=== PATIENT | female | born 1990 | race African-American/Black ===

== ENCOUNTER 2016-08-16 03:29 | Emergency (ER) | payer BC ==
[~2016-08-16] VITALS: Ht 175.3 cm; Wt 113.0 kg
[2016-08-16 03:30] VITALS: BP 150/91; PULSE 78; RESP 16; TEMP 98.2; O2SAT 97
--- NOTE | 2016-08-16 04:07 | PD ---
HPI Chief Complaint: ENT Complaint Time Seen by Provider: 04:00 Travel History International Travel<30 days: No Contact w/Intl Traveler<30days: No Traveled to known affect area: No History of Present Illness HPI 25-year-old female presents for evaluation of sore throat. Symptoms started 2 days ago. It hurts to swallow. Associated with congestion, bilateral ear pressure, cough. She tried using DayQuil but symptoms persisted which prompted evaluation. No fevers or chills, no rash, no recent travel, no recent swimming. No sick contacts. No other complaints at this time. PFSH Past Medical History Medical History: Denies Significant Hx Diminished Hearing: No Tetanus Vaccination: < 5 Years Influenza Vaccination: No ?: Not LMP: 07/14/16 Past Surgical History Surgical History: No Previous Surgery Social History Alcohol Use: Yes (SOCIALLY) Tobacco Use: Yes (1 BLK/MILD CIGAR) Substance Use: No Allergies-Medications (Allergen,Severity, Reaction): Coded Allergies: No Known Allergies (Unverified , 08/16/16) Reported Meds & Prescriptions Reported Meds & Active Scripts Active Tessalon Perles (Benzonatate) 100 Mg Cap 200 Mg PO TID PRN Review of Systems Except as stated in HPI: all other systems reviewed are Neg Physical Exam Narrative GENERAL: Well-developed well-nourished female in no acute distress SKIN: Warm and dry. HEAD: Atraumatic. Normocephalic. EYES: Pupils equal and round. No scleral icterus. No injection or drainage. ENT: No nasal bleeding or discharge. Mucous membranes pink and moist. Tympanic membranes bilaterally without erythema or perforation. Minimal oropharyngeal erythema without exudate. Uvula midline with no mass effect. No stridor or drooling. NECK: Trachea midline. No JVD. No lymphadenopathy. CARDIOVASCULAR: Regular rate and rhythm. No murmur appreciated. RESPIRATORY: No accessory muscle use. Clear to auscultation. Breath sounds equal bilaterally. Data Data Last Documented VS Vital Signs Date Time Temp Pulse Resp B/P Pulse Ox O2 Delivery O2 Flow Rate FiO2 08/16/16 03:55 16 08/16/16 03:30 98.2 78 150/91 97 Room Air Orders Group A Rapid Strep Screen (08/16/16 04:05) Ibuprofen (Motrin) (08/16/16 04:15) Strep Culture (Group A) (08/16/16 04:00) MDM Medical Decision Making Medical Screen Exam Complete: Yes Emergency Medical Condition: Yes Medical Record Reviewed: Yes Differential Diagnosis Pharyngitis, tonsillitis, peritonsillar abscess, infectious mononucleosis, herpangina, epiglottitis Narrative Course 25-year-old female with sore throat, congestion, ear pressure and cough for 2 days. Physical examination is reassuring. Likely the patient is suffering from a viral upper respiratory infection. Rapid strep screen was performed and is negative. The patient is stable for discharge with a cough medication. Diagnosis Primary Impression: Upper respiratory infection Qualified Code: J06.9 - Upper respiratory tract infection, unspecified type Departure Forms: Tests/Procedures, Work Release Enter return to work date: Aug 17, 2016 Additional Instructions: Medication as needed. Take [id number] Tylenol or Motrin for discomfort. Follow-up with primary care physician as needed. Med/Other Pt SpecificInfo: Prescription(s) given Scripts Benzonatate (Tessalon Perles)100 Mg [id number] Mg PO TID PRN (COUGH) #30 CAP Ref 0 Prov:Karthikeyan Villegas MD 08/16/16 Disposition: 01 DISCHARGE HOME Condition: Stable Berhane Pretty Aug 16, 2016 04:06
[2016-08-16] MEDS ORDERED: IBUPROFEN 800 MG TAB PO ONE (04:15)
[2016-08-16] MEDS ORDERED: BENZ100 PO (04:54)
== END 2016-08-16 04:59 | disposition home or self-care (01) ==
LOC: NEPB 03:29
DX: J06.9 Acute upper respiratory infection, unspecified (principal)
CPT/HCPCS: 87081; 87880; 99283

== ENCOUNTER 2016-08-20 14:50 | Emergency (ER) | payer BC ==
[~2016-08-20] VITALS: Ht 175.3 cm; Wt 97.5 kg
[~2016-08-20 14:50] MED LIST: BENZ100 PO
[2016-08-20 14:51] VITALS: BP 165/84; PULSE 94; RESP 15; TEMP 98.2; O2SAT 95
--- NOTE | 2016-08-20 15:35 | PD ---
HPI Chief Complaint: Cold / Flu Symptoms Time Seen by Provider: 15:33 Travel History International Travel<30 days: No Contact w/Intl Traveler<30days: No Traveled to known affect area: No History of Present Illness HPI Patient is a 25-year-old female who presents to our for evaluation of cough, chest congestion, fevers, nasal congestion, sore throat patient was seen and evaluated emergency department for days ago and told she had a viral illness. She states since that time her symptoms have begun to worsen, she is currently approximately 6 days into this illness with no improvement in her symptoms. She denies any abdominal pain, nausea, vomiting, diarrhea. She reports a productive cough with yellow sputum. She states she woke up this morning and her eyes were swollen. She denies a significant past medical history. [facility] Past Medical History Medical History: Denies Significant Hx Diminished Hearing: No ?: Not LMP: 07/2016 Social History Alcohol Use: Yes (SOCIALLY) Tobacco Use: Yes (1 BLK/MILD CIGAR) Substance Use: No Allergies-Medications (Allergen,Severity, Reaction): Coded Allergies: No Known Allergies (Unverified , 08/20/16) Reported Meds & Prescriptions Reported Meds & Active Scripts Active Tessalon Perles (Benzonatate) 100 Mg Cap 200 Mg PO TID PRN Review of Systems Except as stated in HPI: all other systems reviewed are Neg General / Constitutional: Positive: Fever, Chills Eyes: Positive: Other HENT: Positive: Sore Throat, Rhinitis, Congestion, No: Headaches Cardiovascular: No: Chest Pain or Discomfort Respiratory: Positive: Cough, Pleuritic Pain, No: Shortness of Breath, Wheezing Gastrointestinal: No: Nausea, Vomiting, Diarrhea, Abdominal Pain Musculoskeletal: Positive: Myalgias Neurologic: Positive: Weakness, No: Dizziness, Syncope, Focal Abnormalities Physical Exam Narrative GENERAL: Developed, well-nourished, alert female. Resting comfortably in no acute distress. Appears acutely ill. SKIN: Warm and dry. HEAD: Atraumatic. Normocephalic. EYES: Pupils equal and round. No scleral icterus. No injection or drainage. Bilateral upper eyelids are edematous, without erythema. ENT: No nasal bleeding or discharge. Mucous membranes pink and moist. NECK: Trachea midline. No JVD. CARDIOVASCULAR: Regular rate and rhythm. No murmur appreciated. RESPIRATORY: No accessory muscle use. Clear to auscultation. Breath sounds diminished bilaterally in bases. GASTROINTESTINAL: Abdomen soft, non-tender, nondistended. Hepatic and splenic margins not palpable. MUSCULOSKELETAL: No obvious deformities. No clubbing. No cyanosis. No edema. NEUROLOGICAL: Awake and alert. No obvious cranial nerve deficits. Motor grossly within normal limits. Normal speech. PSYCHIATRIC: Appropriate mood and affect; insight and judgment normal. Data Data Last Documented VS Vital Signs Date Time Temp Pulse Resp B/P Pulse Ox O2 Delivery O2 Flow Rate FiO2 08/20/16 17:04 18 08/20/16 17:03 99.1 76 162/87 100 Room Air Orders Complete Blood Count With Diff (08/20/16 15:30) Basic Metabolic Panel (Bmp) (08/20/16 15:30) Influenzae A/B Antigen (08/20/16 15:30) Chest, Pa & Lat (08/20/16 15:30) Labs Laboratory Tests Test 08/20/16 15:55 White Blood Count 13.0 TH/MM3 Red Blood Count 4.35 MIL/MM3 Hemoglobin 9.7 GM/DL Hematocrit 30.4 % Mean Corpuscular Volume 69.9 FL Mean Corpuscular Hemoglobin 22.4 PG Mean Corpuscular Hemoglobin 32.0 % Concent Red Cell Distribution Width 18.3 % Platelet Count 321 TH/MM3 Mean Platelet Volume 8.8 FL Neutrophils (%) (Auto) 66.2 % Lymphocytes (%) (Auto) 22.2 % Monocytes (%) (Auto) 8.4 % Eosinophils (%) (Auto) 2.3 % Basophils (%) (Auto) 0.9 % Neutrophils # (Auto) 8.6 TH/MM3 Lymphocytes # (Auto) 2.9 TH/MM3 Monocytes # (Auto) 1.1 TH/MM3 Eosinophils # (Auto) 0.3 TH/MM3 Basophils # (Auto) 0.1 TH/MM3 CBC Comment AUTO DIFF Differential Comment AUTO DIFF CONFIRMED Platelet Estimate NORMAL Platelet Morphology Comment NORMAL Sodium Level 139 MEQ/L Potassium Level 4.1 MEQ/L Chloride Level 104 MEQ/L Carbon Dioxide Level 29.4 MEQ/L Anion Gap 6 MEQ/L Blood Urea Nitrogen 6 MG/DL Creatinine 0.74 MG/DL Estimat Glomerular Filtration 114 ML/MIN Rate Random Glucose 94 MG/DL Calcium Level 8.7 MG/DL MDM Medical Decision Making Medical Screen Exam Complete: Yes Emergency Medical Condition: Yes Interpretation(s) Vital Signs Date Time Temp Pulse Resp B/P Pulse Ox O2 Delivery O2 Flow Rate FiO2 08/20/16 14:51 98.2 94 15 165/84 95 Differential Diagnosis Influenza versus bronchitis versus pneumonia versus URI versus other Narrative Course Patient is a 25-year-old female who presented to emergency department for evaluation of cough, chest congestion, possible pinkeye. Patient states that not improved over the last 6 days, she was evaluated in the emergency department 4 days ago and diagnosed with viral syndrome. Patient's vital signs are stable, she is afebrile, well oxygenated on room air, and she is not tachycardic. Chest x-ray shows no acute disease. CBC with a mildly elevated white count at 13.6. Chemistries unremarkable. Influenza is negative, strep was performed at her last visit which was also negative. Throat is clear, non- erythematous. At this time patient be given a prescription for antibiotics, she is encouraged to rest, maintain adequate fluid intake. She is encouraged to return to emergency department within 48 hours if she is not having any improvement in her symptoms or if her symptoms worsen despite antibiotic therapy. Last understanding of these instructions. Patient is stable for discharge. Diagnosis Primary Impression: Acute bronchitis Qualified Code: J20.9 - Acute bronchitis, unspecified organism Referrals: Primary Care Physician Patient Instructions: General Instructions, Upper Respiratory Infection (ED) Additional Instructions: Follow-up with her primary doctor Take medications as directed Complete full course of antibiotic therapy even if you begin to feel better Return to the emergency department for any new or worsening symptoms Med/Other Pt SpecificInfo: Prescription(s) given Scripts Albuterol 18 GM Inh (Ventolin Hfa 18 GM Inh)90 Mcg/Act Aer2 Puff INH Q4-6H PRN ( SHORTNESS OF BREATH) #1 INHALER Ref 0 Prov:Karla RosalesP 08/20/16 Ibuprofen 800 Mg [id number] Mg PO Q6HR PRN (PAIN) #40 TAB Ref 0 Prov:Karla Rosales CHIEF DISPATCHER 08/20/16 Amoxicillin 875 Mg [id number] Mg PO BID 10 Days Ref 0 Prov:Karla RosalesP 08/20/16 Azithromycin 250 Mg [id number] Mg PO DIRECTED #6 TAB Ref 0 Take 2 tabs (500 mg) on day 1 then 1 tab daily x 4 days. Prov:Karla Rosales 08/20/16 Disposition: 01 DISCHARGE HOME Condition: Stable Karla Rosales Aug 20, 2016 15:35
--- NOTE | 2016-08-20 16:19 | RADRPT ---
EXAM DATE/TIME: 08/20/2016 15:43 [facility] COMPARISON: No previous studies available for comparison. INDICATIONS : Short of breath ,cough, headache MEDICAL HISTORY : None. SURGICAL HISTORY : None. ENCOUNTER: Initial ACUITY: 1 day PAIN SCORE: 0/10 LOCATION: chest FINDINGS: PA and lateral views of the chest demonstrate the lungs to be symmetrically aerated without evidence of mass, infiltrate or effusion. The cardiomediastinal contours are unremarkable. Osseous structure s are intact. CONCLUSION: No acute disease. Alvaro Lee MD on August 20, 2016 at 16:17 Board Certified Radiologist. This report was verified electronically.
[2016-08-20 16:30] LABS: AUTOMATED NEUTROPHIL # 8.6 TH/MM3 (1.8-7.7); BASOPHIL # 0.1 TH/MM3 (0-0.2); BASOPHIL % 0.9 % (0.0-2.0); EOSINOPHIL # 0.3 TH/MM3 (0-0.4); EOSINOPHIL % 2.3 % (0.0-4.0); HEMATOCRIT 30.4 % (35.0-46.0); LYMPH % 22.2 % (9.0-44.0); LYMPHOCYTE # 2.9 TH/MM3 (1.0-4.8); MEAN CELL VOLUME 69.9 FL (80.0-100.0); MEAN CORPUSCULAR HEMOGLOBIN 22.4 PG (27.0-34.0); MONO % 8.4 % (0.0-8.0); NEUT % 66.2 % (16.0-70.0); PLATELET COUNT 321 TH/MM3 (150-450); RED BLOOD COUNT 4.35 MIL/MM3 (4.00-5.30); RED CELL DISTRIBUTION WIDTH 18.3 % (11.6-17.2)
[2016-08-20 16:32] LABS: HEMO FLAGS AUTO DIFF
[2016-08-20 16:44] LABS: PLATELET ESTIMATE SMEAR NORMAL (NORMAL); PLATELET MORPHOLOGY NORMAL (NORMAL); SCAN/DIFF AUTO DIFF CONFIRMED
[2016-08-20 16:58] LABS: BICARBONATE 29.4 MEQ/L (21.0-32.0); POTASSIUM 4.1 MEQ/L (3.5-5.1)
[2016-08-20 17:03] VITALS: BP 162/87; PULSE 76; RESP 18; TEMP 99.1; O2SAT 100
[2016-08-20] MEDS ORDERED: IBUP800T23 PO (17:20)
[2016-08-20] MEDS ORDERED: AMOX875T PO (17:20)
[2016-08-20] MEDS ORDERED: AZIT250T3 PO (17:20)
[2016-08-20] MEDS ORDERED: VENTAER INH (17:20)
== END 2016-08-20 18:09 | disposition home or self-care (01) ==
LOC: NEPB 14:50
DX: J20.9 Acute bronchitis, unspecified (principal); Z72.0 Tobacco use
CPT/HCPCS: 71020; 80048; 85025; 87804; 99283

== ENCOUNTER 2017-05-17 10:07 | Emergency (ER) | payer BC ==
[~2017-05-17] VITALS: Ht 175.3 cm; Wt 120.0 kg
[2017-05-17 10:07] VITALS: BP 158/90; PULSE 75; RESP 13; TEMP 98.7; O2SAT 100
[~2017-05-17 10:07] MED LIST changes: +AMOX875T PO; +AZIT250T3 PO; +IBUP800T23 PO; +VENTAER INH
--- NOTE | 2017-05-17 10:31 | PD ---
HPI Chief Complaint: Oral / Dental Pain or Problem Time Seen by Provider: 10:30 Travel History International Travel<30 days: No Contact w/Intl Traveler<30days: No Traveled to known affect area: No History of Present Illness HPI 26-year-old female presents to emergency department complaining of right upper and lower dental pain for the past few days. Denies trauma. Denies fever, vomiting. Denies and throat, difficulty swallowing, unusual drooling. Has tried Anbesol, ibuprofen for symptom management. Pain is constant. Rates pain 10/10. Describes the pain as a stabbing sensation. Pain radiates to the right ear. No known relieving factors. No known allergies. Has no other medical complaints. No other modifying factors or associated signs and symptoms. PFSH Past Medical History Diminished Hearing: No Respiratory: Yes (bronchitis ) Tetanus Vaccination: Unknown Influenza Vaccination: No ?: Not LMP: 05/14/17 Past Surgical History Surgical History: No Previous Surgery Social History Alcohol Use: Yes (SOCIALLY) Tobacco Use: Yes (1 BLK/MILD CIGAR) Substance Use: No Allergies-Medications (Allergen,Severity, Reaction): Coded Allergies: No Known Allergies (Unverified , 05/17/17) Reported Meds & Prescriptions Reported Meds & Active Scripts Active Ibuprofen 800 Mg Tab 800 Mg PO Q6HR PRN Amoxicillin 500 Mg Cap 500 Mg PO BID 10 Days Ventolin Hfa 18 GM Inh (Albuterol Sulfate) 90 Mcg/Act Aer 2 Puff INH Q4-6H PRN Ibuprofen 800 Mg Tab 800 Mg PO Q6HR PRN Review of Systems Except as stated in HPI: all other systems reviewed are Neg Physical Exam Narrative GENERAL: Well-nourished, well-developed black female patient, in no acute distress; afebrile, nontoxic-appearing SKIN: Warm and dry. HEAD: Atraumatic. Normocephalic. No facial edema, erythema, tenderness on palpation. No lymphadenopathy. EYES: Pupils equal and round. No scleral icterus. No injection or drainage. ENT: Mucosa pink and moist. No erythema or exudates. No uvular edema. No uvular , palatal, or tonsillar deviation. Airway patent. EARS: Bilateral pinnae and external canals appear within normal limits. Bilateral tympanic membranes without erythema, dullness or perforation. MOUTH: Mucous membranes moist, no lesions, tongue and gums appear normal. Tooth #31, 2 with tenderness on palpation. Multiple dental caries noted throughout. Surrounding gingiva is without erythema, edema, drainage. No obvious abscess noted. NECK: Trachea midline. No lymphadenopathy. CARDIOVASCULAR: Regular rate. RESPIRATORY: No accessory muscle use. GASTROINTESTINAL: Obese. MUSCULOSKELETAL: No obvious deformities. No clubbing. No cyanosis. No edema. NEUROLOGICAL: Awake and alert. Oriented 3. No obvious cranial nerve deficits. Motor grossly within normal limits. Normal speech. PSYCHIATRIC: Appropriate mood and affect; insight and judgment normal. Data Data Last Documented VS Vital Signs Date Time Temp Pulse Resp B/P (MAP) Pulse Ox O2 Delivery O2 Flow Rate FiO2 05/17/17 10:07 98.7 75 13 158/90 (112) 100 Orders Orders Ibuprofen (Motrin) (05/17/17 10:45) Ed Discharge Order (05/17/17 10:44) [facility] Medical Decision Making Medical Screen Exam Complete: Yes Emergency Medical Condition: Yes Medical Record Reviewed: Yes Differential Diagnosis Dental abscess, dentalgia, gingivitis, dental caries, less likely peritonsillar abscess Narrative Course 26-year-old female with dentalgia to tooth #31 and 2. No facial edema, erythema. Patient is afebrile and nontoxic-appearing. Denies fever, vomiting. Ibuprofen administered in the ER. Amoxicillin and ibuprofen prescribed for home. Patient provided emergency dental information sheet for follow-up. Instructed patient to follow up with dentist. Instructed patient to follow up with primary care provider. Patient verbalizes understanding and agreement with treatment plan. Patient is medically cleared and stable for discharge. Discussed reasons to return to the emergency department. Patient agrees with treatment plan. The patients vital signs are stable and the patient is stable for outpatient follow-up and treatment. Patient discharged home, stable and in no acute distress. Diagnosis Primary Impression: Dentalgia Referrals: [facility] Dentist Primary Care Physician Patient Instructions: Dental Abscess (ED), Dental Caries (ED), General Instructions, Toothache (ED) Additional Instructions: Complete full course of antibiotics Ibuprofen or Tylenol as directed and as needed to reduce pain and inflammation Warm or cool compresses to the affected area Follow-up with dentist Follow-up with primary care provider Return to emergency department immediately with worsening of symptoms Med/Other Pt SpecificInfo: Prescription(s) given Scripts Ibuprofen (Ibuprofen) 800 Mg Tab 800 MG PO Q6HR Y for PAIN, #20 TAB 0 Refills Prov: Fernanda Hurt 05/17/17 Amoxicillin (Amoxicillin) 500 Mg Cap 500 MG PO BID for Infection for 10 Days, #20 CAP 0 Refills Prov: Fernanda Hurt 05/17/17 Disposition: 01 DISCHARGE HOME Condition: Stable Fernanda Hurt May 17, 2017 10:31
[2017-05-17] MEDS ORDERED: AMOX500C PO ×2 (10:43)
[2017-05-17] MEDS ORDERED: IBUP800T23 PO ×2 (10:43)
[2017-05-17] MEDS ORDERED: IBUPROFEN 800 MG TAB PO ONE ×2 (10:45)
== END 2017-05-17 11:07 | disposition home or self-care (01) ==
LOC: NEPK 10:07
DX: K08.89 Other specified disorders of teeth and supporting structures (principal); F17.200 Nicotine dependence, unspecified, uncomplicated
CPT/HCPCS: 99283